=== PATIENT | male | born 1965 | race Caucasian/White ===

== ENCOUNTER 2019-12-11 20:08 | Emergency (ER) | payer OTHER ==
[~2019-12-11] VITALS: Ht 185.4 cm; Wt 97.5 kg
[2019-12-11] MEDS ORDERED: FORTAMET500 MG PO (21:07)
== END 2019-12-11 22:15 | disposition home or self-care (01) ==
LOC: ER 20:08
DX: S42.262A Displaced fracture of lesser tuberosity of left humerus, initial encounter for closed fracture (principal); S70.02XA Contusion of left hip, initial encounter; W18.39XA Other fall on same level, initial encounter; Y93.89 Activity, other specified; Y92.89 Other specified places as the place of occurrence of the external cause; Y99.8 Other external cause status